=== PATIENT | female | born 1980 | race Caucasian/White ===

== ENCOUNTER 2017-06-13 11:54 | Emergency (ER) | payer MEDICAID ==
[2017-06-13 12:05] VITALS: TEMP 98.2
[2017-06-13 12:09] LABS: PLATELET COUNT 327 10^3/uL (150-400)
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
[2017-06-13 15:27] VITALS: BP 116/85; PULSE 69; RESP 18; O2SAT 95
== END 2017-06-13 17:35 | disposition home or self-care (01) ==
DX: F31.13 Bipolar disorder, current episode manic without psychotic features, severe (principal); F17.200 Nicotine dependence, unspecified, uncomplicated
CPT/HCPCS: 80305; G0480

== ENCOUNTER 2017-06-14 11:17 | Emergency (ER) | payer MEDICAID ==
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
[2017-06-14] MEDS ORDERED: NICOTINE POLACRILEX 2 MG GUM B PRN ×2 (13:40→18:05)
[2017-06-14 14:20] LABS: PLATELET COUNT 301 10^3/uL (150-400)
[2017-06-14 18:45] VITALS: O2SAT 97
[2017-06-14 21:36] VITALS: BP 128/74; PULSE 90; RESP 16; TEMP 98.1
== END 2017-06-14 21:44 | disposition home or self-care (01) ==
DX: F31.81 Bipolar II disorder (principal); R45.851 Suicidal ideations; F17.200 Nicotine dependence, unspecified, uncomplicated
CPT/HCPCS: 80305; G0480

== ENCOUNTER 2017-06-17 16:47 | Inpatient (IN) | payer MEDICAID ==
[2017-06-17] MEDS ORDERED: HALOPERIDOL LACT 5 MG/ML INJ ONE (16:49)
[2017-06-17] MEDS ORDERED: HALOPERIDOL LACT 5 MG/ML INJ IM ONE (16:52)
--- NOTE | 2017-06-17 16:53 | EDPHY ---
H & P Smoking Status: Current every day smoker Time Seen by Provider: 06/17/17 16:50 HPI/ROS: CHIEF COMPLAINT: "Fuck you asshole" HISTORY OF PRESENT ILLNESS: 36-year-old female history of bipolar disorder arrives from [facility] on M1 hold for a RAD ache behavior, psychosis, medication noncompliance. She is familiar to emergency department staff, has been the ER recently. At the time I interview her she denies suicidal homicidal ideations. She is in 4 point restraints and a spit sloan as she was observed visibly spitting upon arrival into the ER and was noncooperative with EMS. PRIMARY CARE PROVIDER: REVIEW OF SYSTEMS: A ten point review of systems was performed and is negative with the exception of the items mentioned in the HPI PAST MEDICAL & SURGICAL HISTORY: Bipolar disorder SOCIAL HISTORY: Denies alcohol or drug use PHYSICAL EXAM (Prior to examination, patient consented to physical exam, hands were washed and my usual and customary physical exam procedures followed) 1) GENERAL: Well-developed, well-nourished, alert and oriented. Yelling, spitting, cursing 2) HEAD: Normocephalic, atraumatic 3) HEENT: Pupils equal, round, reactive to light bilaterally. Sclera anicteric. Nasopharynx, oropharynx, clear, no lesions. [no raccoon eyes no Silva sign 4) NECK: Full range of motion, no meningeal signs. 5) LUNGS: Clear auscultation bilaterally, no wheezes, no rhonchi, no retractions. 6) HEART: Regular rate and rhythm, no murmur, no heave, no gallop. 7) ABDOMEN: No guarding, no rebound, no focal tenderness, 8) MUSCULOSKELETAL: No peripheral edema or discoloration. 9) BACK: No obvious trauma, no visual or palpable abnormality. 10) SKIN: No rash, no petechiae. 11) Psychiatric: Agitated, yelling, cursing, spitting. DIFFERENTIAL DIAGNOSIS: No particular include but limited to polysubstance abuse, intoxication, psychosis, rylee, head injury (Afsaneh,Kevin Enedina) Constitutional: Initial Vital Signs Temperature (C) 37.5 C 06/17/17 17:05 Heart Rate 101 H 06/17/17 17:05 Respiratory Rate 20 06/17/17 17:05 Blood Pressure 138/90 H 06/17/17 17:05 O2 Sat (%) 99 06/17/17 17:05 O2 Delivery Mode Room Air Allergies/Adverse Reactions: risperidone [From Risperdal] Allergy (Intermediate, Verified 06/14/17 11:26) Home Medications: Medication Instructions Recorded MULTIVITAMINS 07/19/10 AMITRIPTYLINE HCL 06/13/17 Depo-Estradiol 06/13/17 GABAPENTIN 06/13/17 MDM/Departure - MDM Medications Given: Discontinued Medications Haloperidol Lactate (Haldol Injection) 10 mg IM EDNOW ONE Stop: 06/17/17 16:53 Last Admin: 06/17/17 17:13 Dose: 10 mg Sodium Chloride (Ns) 1,000 mls @ 0 mls/hr IV ONCE ONE PRN Reason: Wide Open Stop: 06/17/17 19:06 Last Admin: 06/17/17 19:06 Dose: 1,000 mls Sodium Chloride (Ns) 1,000 mls @ 0 mls/hr IV ONCE ONE PRN Reason: Wide Open Stop: 06/17/17 20:26 Last Admin: 06/17/17 20:30 Dose: 1,000 mls Lorazepam (Ativan Injection) 1 mg IM EDNOW ONE Stop: 06/17/17 17:55 Last Admin: 06/17/17 18:02 Dose: 1 mg Lorazepam (Ativan Injection) 1 mg IM EDNOW ONE Stop: 06/17/17 18:15 Last Admin: 06/17/17 18:49 Dose: Not Given Olanzapine (Zyprexa Im Injection) 10 mg IM EDNOW ONE Stop: 06/17/17 18:16 Last Admin: 06/17/17 18:18 Dose: 10 mg ED Course/Re-evaluation: 4:51 p.m.: Old medical records reviewed. Patient will be given intramuscular Haldol. At this time she will remain in 4 point restraints and a spit sloan as she is noncooperative, spitting, threatening ER staff, I think she presents an imminent danger to herself and ER staff. Care of patient under supervision of secondary supervising physician Dr Hernandez 5:47 p.m.: Patient given IM Haldol. Re-evaluation at this time which point she is more calm however will quickly escalate. She remains in restraints at this time as I think she continues to present an imminent threat to herself and to emergency department staff. 5:54 p.m.: Patient increasing agitated, yelling, threatening, removing her pants. She will be given further medication. 6:45 p.m.: Patient noted to be tachycardic in the 130s. IV will be established , IV fluids administered, will be monitored on the monitor. 9:00 p.m.: Re-evaluation, patient resting comfortably, heart rate in the 80s Care turned over to Dr. Teo Peña pending mental health evaluation (Kevin Shelby) I also saw this patient in the emergency department. She was agitated and uncooperative and threatening. Exam reveals and agitated woman. She is given antipsychotic medication including Benadryl and Ativan. Plan is mental health evaluation after sedation and medical clearance (Jerardo Hernandez) 0151: Patient has been accepted by Dr. Flores at [address] [place] [address]. Patient will be appropriately transfer. EMTALA filled out. (Teo Peña) - Depart Disposition: [facility] IP Clinical Impression: Acute psychosis Condition: Fair Referrals: Patient,NotPresent [Unknown] - As per Instructions
[2017-06-17 17:51] LABS: PLATELET COUNT 275 10^3/uL (150-400)
[2017-06-17] MEDS ORDERED: LORazepam 2 MG/ML INJ IM ONE ×2 (17:54→18:14)
[2017-06-17] MEDS ORDERED: OLANZapine 10 MG/2 ML VIAL IM ONE (18:15)
[2017-06-17] MEDS ORDERED: OLANZapine 10 MG/2 ML VIAL ONE (18:15)
[2017-06-17] MEDS ORDERED: NS 1,000 ML IV ONE ×2 (19:05→20:25)
[2017-06-18] MEDS ORDERED: MAG HYDROX/AL HYDROX/SIMETH 30 ML UDCUP PO PRN (02:41)
[2017-06-18] MEDS ORDERED: LORazepam 0.5 MG TAB PO PRN (02:41)
[2017-06-18] MEDS ORDERED: MAGNESIUM HYDROXIDE 30 ML UDCUP PO PRN (02:41)
[2017-06-18] MEDS ORDERED: OLANZapine 5 MG TAB PO PRN (02:42)
[2017-06-18] MEDS ORDERED: OLANZapine DISINTEGR 5 MG TAB PO PRN (10:44)
[2017-06-18] MEDS ORDERED: LORazepam 2 MG/ML INJ IM PRN (10:46)
[2017-06-18] MEDS ORDERED: OLANZapine 10 MG/2 ML VIAL IM PRN (10:46)
[2017-06-18] MEDS: NICOTINE POLACRILEX 2 MG GUM B PRN ×4 (11:43→14:13)
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
[2017-06-18] MEDS: NICOTINE 21 MG/24 HR PATCH TD SCH (14:13)
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
[2017-06-18] MEDS ORDERED: OLANZapine DISINTEGR 10 MG TAB PO SCH (21:00)
[2017-06-19] MEDS: NICOTINE POLACRILEX 2 MG GUM B PRN ×3 (02:33→23:20)
[2017-06-19] MEDS ORDERED: LORazepam 2 MG/ML INJ IM PRN (08:01)
[2017-06-19] MEDS ORDERED: OLANZapine 10 MG/2 ML VIAL IM PRN (08:01)
--- NOTE | 2017-06-19 08:07 | SOAPPROG ---
SOAP Progress Note Assessment/Plan: Assessment: Bipolar I, MRE Manic, severe with psychotic features versus Schizoaffective Disorder - bipolar type History of PTSD Cannabis Use Disorder, severe Tubal ligation Patient admitted for mixed manic/depressive symptoms, severe disorganization and agitation; was in 4 point restraints in ER for violent behavior and attempting to bite and spit at staff. Patient hospitalized at [facility] 2010 for mixed manic and psychotic symptoms; patient non-compliant with medications and treatment at [facility] recently. Patient today appears disorganized with poor insight, endorses psychotic symptoms (paranoia, AH). Has mild EPS symptoms. Plan: Hearing for short term certification and court ordered medications pending. Reviewed with patient purpose of certification and court ordered medication petition and need for patient to allow care coordination with family prior to discharge EMED DAY #2 Reduce Olanzapine ODT 5mg QHS Continue Olanzapine ODT 5mg PRN agitation and Lorazepam 1mg [id number] PRN anxiety , with IM dosing if refused Discussed with patient that she will be referred to [facility], as she will need to have court ordered medications approved prior to discharge to [facility] Provided education about Bipolar Disorder and treatment of psychosis Assault precautions Reviewed risks of Olanzapine, including risk of EPS, tardive dyskinesia, metabolic syndrome, sedation 06/19/17 08:14 Subjective: CC: "OK" "better" "balanced" Patient reports feeling improved but is unable to explain in what way she feels improved. Unable to explain why she was in ER 06/13 for SI and where she went after that 'the hospital someone knows.' Endorses AH but unable to describe. Endorses paranoia related to 'my family' but is unable to give details. Unable to explain why she was violent and in restraints and biting people and spitting at people in ER. With structured questioning, reports living with mother, adult daughter, and adult step-son. Unable to explain why she isn't working or taking care of her other children. Objective: Vital Signs Temp Pulse Resp BP Pulse Ox 36.6 C 84 16 144/70 H 97 06/19/17 06:00 06/19/17 06:00 06/19/17 06:00 06/19/17 06:00 06/19/17 06:00 Alert female with glasses. Mild slowing with mild cogwheeling and lower face AIM. Speech soft few words. Mood 'OK' 'better'. Affect restricted. Thoughts disorganized with poverty of content and loose associations. Denies SI or HI. Endorses AH but unable to explain. Endorses paranoia toward family but unable to give details. Unable to explain recent events, including recent ER visit for SI and ER visit during which patient was violent and in 4 point restraints. Staff report patient irritable, disorganized, withdrawal, and paranoid on unit but cooperated with QUIRINO Aguiar last night. TSH 1.4 - Time Spent With Patient Time Spent With Patient: 30 minutes - Pending Discharge Pending Discharge Within 24 Hours: No Pending Discharge Within 48 Hours: No ICD10 Worksheet Patient Problems: Problems Problem Status Onset Acute psychosis Acute
[2017-06-19] MEDS: NICOTINE 21 MG/24 HR PATCH TD SCH (08:58)
[2017-06-19] MEDS: OLANZapine DISINTEGR 10 MG TAB PO SCH (20:50)
[2017-06-19] MEDS: ACETAMINOPHEN 325 MG TAB PO PRN (23:36)
[2017-06-19] MEDS: LORazepam 0.5 MG TAB PO PRN (23:36)
[2017-06-19] MEDS: hydrOXYzine HCL 25 MG TAB PO PRN (23:36)
[2017-06-20] MEDS: NICOTINE POLACRILEX 2 MG GUM B PRN ×8 (09:16→23:30)
[2017-06-20] MEDS: NICOTINE 21 MG/24 HR PATCH TD SCH (10:50)
[2017-06-20] MEDS: OLANZapine DISINTEGR 10 MG TAB PO SCH (19:33)
--- NOTE | 2017-06-20 20:02 | SOAPPROG ---
SOAP Progress Note Assessment/Plan: Assessment: 36yo female, , admitted with mixed manic and psychotic symptoms. Had required 4pt restraints for biting/spitting in ER, required Emeds x 2days. On STC. C.O meds requested. Now taking medications but continues irritable. 06/20/17 12:10 Per staff slept 6hr. Has reported overall feeling a little better. Attended groups today. Took meds orally. On interview, pt reports feeling "a lot better now...I met with a flag football coach yesterday..I miss my kids...I have IBS...my mom has my tooth (missing front tooth)...am I making sense?" States she has no problems taking her medication, and only missed occasionally prior to admission, agrees to continue taking meds orally voluntarily. States she won't shower while here b/c lack of privacy, hopes to be d/c'd soon b/c misses her kids, "I worry about them all the time". "Used to" use THC daily, "but I won't anymore" Denied any physical complaints or any med s/e. MSE: Somewhat disheveled, casually dressed, good eye contact, nml psychom activity, nml/incr speech rate but not pressured. cooperative with interview. Mood "depressed" b/c in hosp and misses her kids, affect restricted although seems irritable and guarded. No evid of responding to internal stim. Thought process somewhat non-linear but redirectable. Guarded with details, seems mildly paranoid. Denies any SI or AH/VH, and no thoughts to harm others. i/j both limited. cognition grossly intact. PLAN: -okay to not continue Emeds at this time. took voluntarily last pm, agrees to continue, attended groups, has been redirectible, and seems improving from admission behaviors and in better behavioral control. Low threshold to resume Emeds, however. -Zyprexa 5mg qhs and prn, with Ativan prn -incr VS to BID, noted tachycardic this am -continue assault precautions Objective: Vital Signs Temp Pulse Resp BP Pulse Ox 35.9 C L 118 H 16 137/65 H 97 06/20/17 06:00 06/20/17 06:00 06/20/17 06:00 06/20/17 06:00 06/20/17 06:00 - Time Spent With Patient Time Spent With Patient: 25min - Pending Discharge Pending Discharge Within 24 Hours: No Pending Discharge Within 48 Hours: No ICD10 Worksheet Patient Problems: Problems Problem Status Onset Acute psychosis Acute Posttraumatic stress disorder Acute Bipolar disorder with severe rylee Acute
[2017-06-21] MEDS: NICOTINE POLACRILEX 2 MG GUM B PRN ×14 (00:41→23:38)
[2017-06-21] MEDS: ACETAMINOPHEN 325 MG TAB PO PRN (05:32)
[2017-06-21] MEDS: hydrOXYzine HCL 25 MG TAB PO PRN ×2 (05:33→12:30)
[2017-06-21] MEDS: NICOTINE 21 MG/24 HR PATCH TD SCH ×2 (08:43→08:46)
[2017-06-21] MEDS ORDERED: OLANZapine 2.5 MG TAB PO ONE (11:23)
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
[2017-06-21] MEDS ORDERED: diphenhydrAMINE 25 MG CAP PO PRN (11:24)
[2017-06-21] MEDS: LORazepam 0.5 MG TAB PO PRN (12:30)
[2017-06-21] MEDS: OLANZapine DISINTEGR 10 MG TAB PO SCH ×2 (20:03)
[2017-06-21] MEDS ORDERED: OLANZapine 5 MG TAB PO SCH (21:00)
[2017-06-21] MEDS ORDERED: BENZTROPINE MESYLATE 1 MG TAB PO PRN (21:51)
[2017-06-22] MEDS: NICOTINE POLACRILEX 2 MG GUM B PRN ×12 (01:46→20:58)
[2017-06-22] MEDS: ACETAMINOPHEN 325 MG TAB PO PRN ×2 (05:10→23:30)
[2017-06-22] MEDS: NICOTINE 21 MG/24 HR PATCH TD SCH ×2 (08:39→09:38)
[2017-06-22] MEDS ORDERED: LORazepam 0.5 MG TAB PO PRN (09:25)
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
[2017-06-22] MEDS: FAMOTIDINE 20 MG TAB PO SCH ×2 (12:37→19:14)
[2017-06-22] MEDS: hydrOXYzine HCL 25 MG TAB PO PRN (19:14)
[2017-06-22] MEDS: OLANZapine DISINTEGR 10 MG TAB PO SCH (19:14)
[2017-06-22] MEDS: PRAZOSIN HCL 1 MG CAP PO SCH (19:14)
[2017-06-22] MEDS: MELATONIN 3 MG TAB PO PRN (19:15)
[2017-06-22] MEDS: SENNOSIDES 1 TAB PO SCH (19:15)
[2017-06-23] MEDS: NICOTINE POLACRILEX 2 MG GUM B PRN ×8 (00:33→22:46)
[2017-06-23] MEDS: ACETAMINOPHEN 325 MG TAB PO PRN (03:57)
[2017-06-23] MEDS: hydrOXYzine HCL 25 MG TAB PO PRN (04:18)
[2017-06-23] MEDS: OLANZapine DISINTEGR 5 MG TAB PO PRN (04:19)
[2017-06-23] MEDS: FAMOTIDINE 20 MG TAB PO SCH ×2 (07:30→18:19)
[2017-06-23] MEDS: SENNOSIDES 1 TAB PO SCH ×2 (07:31→18:19)
[2017-06-23] MEDS: NICOTINE 21 MG/24 HR PATCH TD SCH (07:31)
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
[2017-06-23] MEDS: LITHIUM CARBONATE ER 450 MG TAB PO SCH ×2 (10:26→18:19)
[2017-06-23] MEDS: PRAZOSIN HCL 1 MG CAP PO SCH (18:19)
[2017-06-23] MEDS: OLANZapine DISINTEGR 10 MG TAB PO SCH (18:19)
[2017-06-24] MEDS: NICOTINE POLACRILEX 2 MG GUM B PRN ×11 (00:18→18:38)
[2017-06-24] MEDS: ACETAMINOPHEN 325 MG TAB PO PRN (01:35)
[2017-06-24] MEDS: OLANZapine DISINTEGR 5 MG TAB PO PRN (01:36)
[2017-06-24] MEDS: hydrOXYzine HCL 25 MG TAB PO PRN ×2 (01:36→20:19)
[2017-06-24] MEDS: MELATONIN 3 MG TAB PO PRN ×2 (01:36→20:20)
[2017-06-24] MEDS: LITHIUM CARBONATE ER 450 MG TAB PO SCH ×2 (08:27→20:19)
[2017-06-24] MEDS: SENNOSIDES 1 TAB PO SCH ×2 (08:27→20:19)
[2017-06-24] MEDS: FAMOTIDINE 20 MG TAB PO SCH ×2 (08:27→20:19)
[2017-06-24] MEDS: NICOTINE 21 MG/24 HR PATCH TD SCH (08:28)
--- NOTE | 2017-06-24 09:18 | PDMN ---
Medical Necessity Medical necessity: Spoke with Dr. Rodriguez at Medicaid, authorized today and tomorrow with review Thursday06/26/2016. Dr. Rodriguez requesting Head CT and EEG.
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
[2017-06-24] MEDS: OLANZapine DISINTEGR 10 MG TAB PO SCH (20:19)
[2017-06-24] MEDS: PRAZOSIN HCL 1 MG CAP PO SCH (20:19)
[2017-06-25] MEDS: NICOTINE POLACRILEX 2 MG GUM B PRN ×10 (05:07→21:26)
[2017-06-25] MEDS: ACETAMINOPHEN 325 MG TAB PO PRN ×2 (05:18→13:52)
[2017-06-25 06:45] VITALS: RESP 16
[2017-06-25] MEDS: SENNOSIDES 1 TAB PO SCH ×2 (08:41→19:07)
[2017-06-25] MEDS: FAMOTIDINE 20 MG TAB PO SCH ×2 (08:41→19:07)
[2017-06-25] MEDS: LITHIUM CARBONATE ER 450 MG TAB PO SCH ×2 (08:41→17:07)
[2017-06-25] MEDS: NICOTINE 21 MG/24 HR PATCH TD SCH (08:41)
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
[2017-06-25] MEDS ORDERED: OLANZapine DISINTEGR 10 MG TAB PO SCH (09:01)
[2017-06-25] MEDS: hydrOXYzine HCL 25 MG TAB PO PRN (13:41)
[2017-06-25] MEDS: PRAZOSIN HCL 1 MG CAP PO SCH (19:07)
[2017-06-25] MEDS ORDERED: MELATONIN 3 MG TAB PO SCH (21:00)
[2017-06-26] MEDS: NICOTINE POLACRILEX 2 MG GUM B PRN ×7 (03:57→13:35)
[2017-06-26] MEDS: ACETAMINOPHEN 325 MG TAB PO PRN (05:09)
[2017-06-26 06:47] VITALS: TEMP 98.5
[2017-06-26] MEDS: FAMOTIDINE 20 MG TAB PO SCH (08:00)
[2017-06-26] MEDS: LITHIUM CARBONATE ER 450 MG TAB PO SCH (08:00)
[2017-06-26] MEDS: NICOTINE 21 MG/24 HR PATCH TD SCH (08:00)
[2017-06-26] MEDS: SENNOSIDES 1 TAB PO SCH (08:00)
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
[2017-06-26 14:02] VITALS: BP 178/81; PULSE 72; O2SAT 96
== END 2017-06-26 14:09 | DRG 885 ==
LOC: EDUNIT# → BBEH 06-18 02:24
PROVIDERS: ADMIT Psychiatry & Neurology Psychiatry; ATTEND Psychiatry & Neurology Psychiatry
DX: F31.2 Bipolar disorder, current episode manic severe with psychotic features (principal); Z91.14 Patient's other noncompliance with medication regimen; K21.9 Gastro-esophageal reflux disease without esophagitis; F43.10 Post-traumatic stress disorder, unspecified; R00.0 Tachycardia, unspecified; F12.90 Cannabis use, unspecified, uncomplicated; F17.210 Nicotine dependence, cigarettes, uncomplicated
CPT/HCPCS: 80305; G0480; J1630; J2060